=== PATIENT | male | born 1955 | race Caucasian/White ===

== ENCOUNTER 2018-08-27 06:03 | Day surgery (SDC) | payer MEDICARE ==
[~2018-08-27] VITALS: Ht 180.3 cm; Wt 113.0 kg
[2018-08-27] MEDS ORDERED: DEXAMETHASONE 4 MG/ML, 1ML IV PRN (07:00)
[2018-08-27] MEDS ORDERED: FENTANYL PF 100 MCG/2ML IV PRN (07:00)
[2018-08-27] MEDS ORDERED: OXYcodone 5 MG/5 ML ORAL.SOL UDC PO PRN (07:00)
[2018-08-27] MEDS ORDERED: ONDANSETRON 2MG/ML, 2ML IV PRN (07:00)
[2018-08-27] MEDS ORDERED: HYDROcodone/APAP 7.5-325MG/15ML UDC PO PRN (07:00)
[2018-08-27] MEDS ORDERED: MIDAZOLAM 1 MG/ML, 2ML IV PRN (07:00)
[2018-08-27] MEDS ORDERED: PROTAMINE SULFATE 10 MG/ML, 5ML ONE (07:10)
[2018-08-27] MEDS ORDERED: THROMBIN 5,000 UNIT VIAL TP ONE (07:11)
[2018-08-27] MEDS ORDERED: HEPARIN 1,000 UNITS/ML, 10ML ONE ×2 (07:11→10:23)
[2018-08-27 07:36] VITALS: BP 159/87
[2018-08-27] MEDS ORDERED: LACTATED RINGERS 1,000 ML IV SCH (07:46)
[2018-08-27] MEDS ORDERED: SODIUM CHLORIDE 0.9% 1,000 ML IV SCH (07:47)
[2018-08-27] MEDS ORDERED: ALLO300T PO (08:38)
[2018-08-27] MEDS ORDERED: ATOR10TA9 PO (08:38)
[2018-08-27] MEDS ORDERED: CINA60TA PO (08:38)
[2018-08-27] MEDS ORDERED: OMEG-157 PO (08:38)
[2018-08-27] MEDS ORDERED: VITA1TAB67 PO (08:38)
[2018-08-27] MEDS ORDERED: SIMV40TA3 PO (08:38)
[2018-08-27] MEDS ORDERED: DOCU100C33 PO (08:38)
[2018-08-27] MEDS ORDERED: TAMS0.4C2 PO (08:38)
[2018-08-27] MEDS ORDERED: ASPI-515 PO (08:38)
[2018-08-27] MEDS ORDERED: SEVE800T8 PO (08:38)
[2018-08-27] MEDS ORDERED: COLC0.6C3 PO (08:38)
[2018-08-27] MEDS ORDERED: FENTANYL PF 100 MCG/2ML ONE (10:23)
[2018-08-27] MEDS ORDERED: PROTAMINE SULFATE 10 MG/ML, 25ML ONE (10:23)
[2018-08-27] MEDS ORDERED: NITROGLYCERIN 5 MG/ML, 10ML ONE (10:23)
[2018-08-27] MEDS ORDERED: FLUMAZENIL 0.1 MG/1 ML, 5ML ONE (10:23)
[2018-08-27] MEDS ORDERED: NALOXONE 1 MG/ML, 2ML ONE (10:23)
[2018-08-27] MEDS ORDERED: MIDAZOLAM 1 MG/ML, 5ML ONE (10:23)
== END 2018-08-27 12:40 | disposition home or self-care (01) ==
LOC: OUT 06:03
PROVIDERS: ATTEND Surgery Vascular Surgery
DX: T82.590A Other mechanical complication of surgically created arteriovenous fistula, initial encounter (principal); Y83.8 Other surgical procedures as the cause of abnormal reaction of the patient, or of later complication, without mention of misadventure at the time of the procedure; Y92.89 Other specified places as the place of occurrence of the external cause; I12.0 Hypertensive chronic kidney disease with stage 5 chronic kidney disease or end stage renal disease; N18.6 End stage renal disease
CPT/HCPCS: 36415; 36901; 80047; 93005; 99156; 99157; C1751; C1769; C1894; J2250; J3010; J7030; J1644; J2720; J2310

== ENCOUNTER 2020-04-20 14:49 | Day surgery (SDC) | payer MEDICARE, MEDICAID ==
[~2020-04-20] VITALS: Ht 180.3 cm; Wt 91.5 kg
[~2020-04-20 14:49] MED LIST: ALLO300T PO; ASPI-515 PO; ATOR10TA9 PO; BACITRACIN 50,000 UNIT ONE; BUPIVACAINE/PF-EPI 0.5% 1:200K ONE; CINA60TA PO; COLC0.6C3 PO; DOCU100C33 PO; HEPARIN 1,000 UNITS/ML, 10ML ONE; LIDOCAINE 1%, 20ML ONE; OMEG-157 PO; PROTAMINE SULFATE 10 MG/ML, 5ML ONE; SEVE800T8 PO; SIMV40TA20 PO; TAMS0.4C2 PO; VITA1TAB67 PO
[2020-04-20] MEDS ORDERED: LACTATED RINGERS 1,000 ML IV SCH (15:05)
[2020-04-20] MEDS ORDERED: CHLORHEXIDINE 15 ML UDC MM ONE (15:30)
[2020-04-20 15:32] VITALS: BP 119/77
[2020-04-20] MEDS ORDERED: SODIUM CHLORIDE 0.9% 1,000 ML IV SCH (16:04)
[2020-04-20 16:23] LABS: MEAN CORPUSCULAR HGB CONC 32.3 g/dL (33.2-36.2); MEAN PLATELET VOLUME 7.2 fL (7.4-10.4); PLATELET COUNT 318 x10^3/uL (130-400); RED BLOOD COUNT 3.32 x10^6/uL (4.38-5.82); RED CELL DISTRIBUTION WIDTH 16.1 % (9.4-14.8)
[2020-04-20 16:24] LABS: ANION GAP 7 mmol/L (5-15); CALCIUM 8.6 mg/dL (8.5-10.1); CHLORIDE 103 mmol/L (98-107); CREATININE 7.14 mg/dL (0.7-1.3)
[2020-04-20] MEDS ORDERED: FENTANYL PF 100 MCG/2ML ONE (16:37)
[2020-04-20 16:52] LABS: MD YES
[2020-04-20 16:55] LABS: BASOS#(MANUAL) 0.08 x10^3/uL (0-0.1); BASOS% (MANUAL) 1 % (0-1); EOS#(MANUAL) 0.15 x10^3/uL (0.0-0.4); EOS% (MANUAL) 2 % (1-7); LYMPH#(MANUAL) 0.99 x10^3/uL (1-3.4); LYMPHS% (MANUAL) 13 % (22-44); MONOS#(MANUAL) 0.76 x10^3/uL (0.3-2.7); MONOS% (MANUAL) 10 % (2-9); SEG#(MANUAL) 5.62 x10^3/uL (1.8-6.8); SEGS% (MANUAL) 74 % (42-75)
[2020-04-20 16:56] LABS: <PLATELET ESTIMATE> ADEQUATE; <PLT MORPHOLOGY> NORMAL PLT MORPH; <RBC MORPHOLOGY> NORMAL
[2020-04-20] MEDS ORDERED: PHENYLEPHRINE 10 MG/ML ONE (17:09)
[2020-04-20] MEDS ORDERED: CEFAZOLIN 1,000 MG ONE (17:48)
[2020-04-20] MEDS ORDERED: PROPOFOL 10 MG/ML, 20ML ONE (17:48)
[2020-04-20] MEDS ORDERED: DEXAMETHASONE 4 MG/ML, 1ML ONE (17:48)
[2020-04-20] MEDS ORDERED: ONDANSETRON 2MG/ML, 2ML ONE (17:48)
[2020-04-20] MEDS ORDERED: HALOPERIDOL 5 MG/ML IV PRN (18:30)
[2020-04-20] MEDS ORDERED: HYDROmorphone 1 MG/ML, 1ML INJ IVPush PRN (18:30)
[2020-04-20] MEDS ORDERED: OXYcodone 5 MG/5 ML ORAL.SOL UDC PO PRN (18:30)
[2020-04-20] MEDS ORDERED: PROMETHAZINE 25 MG/ML, 1ML IVPush PRN (18:30)
[2020-04-20] MEDS ORDERED: FENTANYL PF 100 MCG/2ML IV PRN (18:30)
[2020-04-20] MEDS ORDERED: LABETALOL 5MG/ML, 20ML IV PRN (18:30)
[2020-04-20] MEDS: hydrALAzine 20 MG/ML, 1ML IV PRN (19:15)
[2020-04-20] MEDS ORDERED: BUPIVACAINE/PF 0.25% ONE (19:54)
[2020-04-20] MEDS ORDERED: ONDANSETRON 2MG/ML, 2ML IVPush PRN (20:00)
[2020-04-20] MEDS ORDERED: HYDROcodone/APAP 5/325 TABLET PO PRN (20:00)
[2020-04-20] MEDS ORDERED: morphine SULFATE 10 MG/ML, 1ML IVPush PRN (20:00)
[2020-04-20] MEDS ORDERED: HYDR-3240 PO (20:15)
== END 2020-04-20 21:30 | disposition home or self-care (01) ==
LOC: OR 14:49 → 4NE 19:30 → OR 21:30
PROVIDERS: ATTEND Surgery
DX: I89.0 Lymphedema, not elsewhere classified (principal); Z11.59 Encounter for screening for other viral diseases; I12.0 Hypertensive chronic kidney disease with stage 5 chronic kidney disease or end stage renal disease; N18.6 End stage renal disease; M10.9 Gout, unspecified; F31.9 Bipolar disorder, unspecified; E03.9 Hypothyroidism, unspecified; Z90.5 Acquired absence of kidney; Z79.82 Long term (current) use of aspirin; Z79.899 Other long term (current) drug therapy; Z82.49 Family history of ischemic heart disease and other diseases of the circulatory system; Z83.3 Family history of diabetes mellitus
CPT/HCPCS: 36415; 37607; 80048; 85025; 87635; 93005; J0360; J0690; J1100; J1644; J2370; J2405; J2704; J3010; J3490; G0378; J2720